=== PATIENT | female | born 1945 | race Caucasian/White ===

== ENCOUNTER 2016-09-28 16:01 | Inpatient (IN) | payer MEDICARE, OTHER ==
[~2016-09-28] VITALS: Ht 160 cm; Wt 65.3 kg
[2016-09-28] MEDS ORDERED: IBUP-1481 PO (16:09)
[2016-09-28] MEDS ORDERED: PROP20TA7 PO (16:09)
--- NOTE | 2016-09-28 16:23 | NUR ---
PT UNABLE TO REMEMBER HER OWN MEDICATIONS - ONE FOR BP CONTROL AND ONE FOR HER "SHAKES".
[2016-09-28] MEDS ORDERED: HYDROCODONE/APAP 10-325 MG TABLET PO ONE (16:45)
[2016-09-28] MEDS ORDERED: HYDROCODONE/APAP 10-325 MG TABLET ONE (16:54)
[2016-09-28] MEDS ORDERED: MAG HYDROX/AL HYDROX/SIMETH 30 ML LIQUID UDC PO PRN (17:30)
[2016-09-28] MEDS ORDERED: ACETAMINOPHEN 325 MG TABLET PO PRN (17:30)
[2016-09-28] MEDS ORDERED: MAGNESIUM HYDROXIDE 30 ML LIQUID UDC PO PRN (17:30)
--- NOTE | 2016-09-28 19:13 | NUR ---
[facility] for [facility] to self. Patient was intoxicated with alcohol for 4 days. Patient been defecating and urinating herself and needs medical attention. Patient told the arm officers she wanted to off and trying to kill herself by drinking alcohol. Patient alert and ox 3, and a good historian. Admission care done. Dr. german and Dr Lloyd notified of the admission.
[2016-09-28] MEDS: ZOLPIDEM 5 MG TABLET PO PRN (20:13)
[2016-09-28 20:33] VITALS: BP 134/72
[2016-09-29] MEDS: LORAZEPAM 1 MG TABLET PO PRN ×4 (05:19→22:37)
[2016-09-29 07:30] VITALS: BP 149/87
[2016-09-29] MEDS: NICOTINE 14 MG/24HR PATCH TD SCH (08:34)
[2016-09-29] MEDS ORDERED: PANTOPRAZOLE SODIUM 40 MG TABLET.DR PO ONE (11:00)
--- NOTE | 2016-09-29 13:34 | NUR ---
Initial discharge instructions: The patient resides in an apartment with her daughter [[address] [place] [address]]. Spoke with the patient who stated that she would like to return home upon discharge. Spoke with the patient's son John Aguilar who stated that the patient may benefit from SNF placement. SW will speak with patient, family, and MD regarding most appropriate discharge plan. SS will form a safe and proper discharge.
[2016-09-29] MEDS ORDERED: IBUPROFEN 400 MG TABLET PO PRN (15:00)
[2016-09-29 15:37] VITALS: BP 149/79
--- NOTE | 2016-09-29 16:54 | NUR ---
SPOKE WITH DR.SIMONA Griffiths REGARDING ALCOHOL WITHDRAWALS ,PER ,CHRIS KIRKLAND IS ENOUGH FOR PT NOW,AND SHE WILL ADD SOME MORE MEDICATION IN AM.
[2016-09-29 20:25] VITALS: BP 138/73
[2016-09-29] MEDS: ZOLPIDEM 5 MG TABLET PO PRN (21:04)
[2016-09-29] MEDS: PROPRANOLOL HCL 20 MG TABLET PO SCH (21:05)
--- NOTE | 2016-09-29 22:00 | NUR ---
received to care, lying in bed, appearing anxious, but pleasant upon approach. PRN lea was given at 2103. as of 2199, she remains awake. will continue to monitor closely.
--- NOTE | 2016-09-29 22:37 | NUR ---
remains awake. PRN ativan was given. will continue to monitor closely.
--- NOTE | 2016-09-30 05:59 | NUR ---
is now awake. slept 4.5 hours, total. apears less anxious, than last night. currently watching tv. no distress noted.
[2016-09-30] MEDS ORDERED: PANTOPRAZOLE SODIUM 40 MG TABLET.DR PO SCH (07:00)
[2016-09-30 07:30] VITALS: BP 175/89
[2016-09-30] MEDS: NICOTINE 14 MG/24HR PATCH TD SCH (08:36)
[2016-09-30] MEDS: PROPRANOLOL HCL 20 MG TABLET PO SCH (08:38)
--- NOTE | 2016-09-30 08:44 | NUR ---
patient laying in bed with the light off. patient complaing of stomach pain. given motrin for pain. patient has moderate tremors.
[2016-09-30] MEDS ORDERED: ESCITALOPRAM OXALATE 10 MG TABLET NG SCH (09:00)
--- NOTE | 2016-09-30 09:17 | NUR ---
PATIENT IS UP AND WALKING WITH PHYSICAL THERAPY.
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
--- NOTE | 2016-09-30 09:56 | NUR ---
GPS/RN- left message for Dr Park for consult request per Dr Oh
--- NOTE | 2016-09-30 10:50 | NUR ---
DOCTOR CIRILO IN ROOM TO SEE PATIENT.
--- NOTE | 2016-09-30 10:51 | NUR ---
PATIENT WILL BE SIGNING OUT AMA. DOCTOR CIRILO WILL BE TAKING HER OFF THE HOLD AND SHE DOES NOT WANT TO STAY SHE WANTS TO LEAVE. NOT A CANDIDATE FOR BEING ON HOLD.
--- NOTE | 2016-09-30 10:59 | NUR ---
CHARGE NURSE INFORMED COMBINATION PRESSER FOR SAFETY UPON RELEASE OF PATIENT TO GO HOME WHOM SHE LIVES WITH DAUGHTER.
--- NOTE | 2016-09-30 11:09 | NUR ---
FOR PATIENT SAFETY WASHING MACHINE ASSEMBLER IS CONTACTING THE SON AND PATIENT WILL BE RELEASED AND DISCHARGE TO PATIENT'S SON.
--- NOTE | 2016-09-30 11:48 | NUR ---
PATIENT SIGNED AND UNDERSTOOD DISCHARGE PAPERWORK. PATIENT IS IN ROOM LAYING DOWN WAITING FOR SON TO PICK HER UP.
--- NOTE | 2016-09-30 11:53 | NUR ---
PATIENT DID NOT HAVE ANY BELONGINGS RECORDED THAT SHE CAME IN WITH.
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
--- NOTE | 2016-09-30 13:00 | NUR ---
GPS/RN- Patient signed AMA, patient awaiting for family to pick her up. denies any suicidal or homicidal ideation.
--- NOTE | 2016-09-30 13:04 | NUR ---
DC Note: Patient is choosing to go AMA, and refused SNF placement. She will be discharged back home [[address] [place] [address]] via private transportation. Spoke with the patient's son, John Aguilar who is aware and agreeable with discharge plans. John stated he will be picking up the patient at 7:00 pm. Patient is aware and agreeable with discharge plans. Patient will follow-up with ([facility]) [[address] [place] [address]; ] and was referred to [facility] [phone]], [facility] Crisis [facility] ([phone], and [facility] [phone] for psychiatric referrals. Patient was provided with a brief substance abuse intervention to [facility], and [facility] Al[facility]Drug [facility]. [facility]. Additionally, patient was encouraged to follow-up with [facility] [Alcoholics Anonymous Meeting/[facility], [address], [place], [address]] on 10/01/16 at 7:00 am. Addendum: 09/30/16 at 1506 by FADIA BARRERA Pt's son, John stated the pt's Grandson Blu Harvey will be picking up the pt instead.
--- NOTE | 2016-09-30 13:06 | NUR ---
GPS.RN- MESSAGE LEFT FOR DR VELASQUEZ PATIENT TO BE DISCHARGED AMA TODAY.
--- NOTE | 2016-09-30 13:07 | NUR ---
GPS/RN- patients family will pick her up at 7pm today
[2016-09-30] MEDS ORDERED: THIAMINE HCL 200 MG/2 ML VIAL IM ONE (14:45)
--- NOTE | 2016-09-30 15:39 | NUR ---
PAGED DOCTOR HUSSEIN PEREZ PAGED FOR CONTINUED ELEVATED BLOOD PRESSURE DESPITE MORNING MEDICATION TAKEN.
[2016-09-30 16:00] VITALS: BP 170/90
[2016-09-30 16:59] VITALS: BP 169/96
[2016-09-30] MEDS ORDERED: METOPROLOL TARTRATE 25 MG TABLET PO ONE (17:00)
[2016-09-30 17:03] VITALS: BP 169/96
--- NOTE | 2016-09-30 17:05 | NUR ---
PATIENT PICKED UP BY GRANDSON. DISCHARGE PAPERWORK TAKEN BY THE PATIENT AND ESCORTED OUT WITH NURSE.
[2016-10-01] MEDS ORDERED: FOLIC ACID 1 MG TABLET PO SCH (09:00)
[2016-10-01] MEDS ORDERED: METOPROLOL TARTRATE 25 MG TABLET PO SCH (09:00)
== END 2016-09-30 17:15 | disposition left against medical advice (07) | DRG 881 ==
LOC: ER 16:06 → GPS 17:04
PROVIDERS: ADMIT Psychiatry & Neurology Psychiatry; ATTEND Psychiatry & Neurology Psychiatry
DX: F32.9 Major depressive disorder, single episode, unspecified (principal); F10.229 Alcohol dependence with intoxication, unspecified; F10.239 Alcohol dependence with withdrawal, unspecified; F29 Unspecified psychosis not due to a substance or known physiological condition; Y90.9 Presence of alcohol in blood, level not specified; T14.8 Other injury of unspecified body region; X58.XXXD Exposure to other specified factors, subsequent encounter; Y92.9 Unspecified place or not applicable
CPT/HCPCS: 36415; 71010; 93005; 97116; 97161; 97530; J3411